=== PATIENT | female | born 1965 | race Caucasian/White ===

== ENCOUNTER 2020-08-06 21:47 | Emergency (ER) | payer OTHER ==
[~2020-08-06] VITALS: Ht 170.2 cm; Wt 84.4 kg
--- NOTE | 2020-08-06 23:05 | NUR ---
NILAM VAZQUEZ. [phone]. CALL WHEN READY TO BE PICKED UP.
--- NOTE | 2020-08-06 23:48 | NUR ---
URINE COLLECTED AND SENT TO THE LAB
--- NOTE | 2020-08-07 01:54 | NUR ---
CALLED [employer], NO ANSWER, LEFT VOICEMAIL
--- NOTE | 2020-08-07 02:14 | NUR ---
CALLED [employer], NO ANSWER
--- NOTE | 2020-08-07 02:37 | NUR ---
CALLED [employer], NO ANSWER
--- NOTE | 2020-08-07 04:50 | NUR ---
PT OK TO BE DISCHARGED PER DR LOPEZ. Patient discharged to home in stable condition. Written and verbal after care instructions given. Patient verbalizes understanding of instruction.Patient is awake and alert to self, day, and place. PT ambulatory with a steady gait. Pt picked up by boyfriend.
[2020-08-07 05:17] VITALS: BP 115/69
== END 2020-08-07 05:18 | disposition home or self-care (01) ==
LOC: ER 21:51
DX: F10.129 Alcohol abuse with intoxication, unspecified (principal); Y90.9 Presence of alcohol in blood, level not specified
CPT/HCPCS: 82962-TC